=== PATIENT | male | born 1945 | race Caucasian/White ===

== ENCOUNTER 2018-01-02 05:18 | Inpatient (IN) | payer MEDICARE ==
[2017-12-27 15:42] LABS: BASOPHILS # (AUTO) 0.1 X10'3 (0-0.2); BASOPHILS % (AUTO) 0.8 % (0-1); EOSINOPHILS # (AUTO) 0.1 X10'3 (0-0.9); EOSINOPHILS % (AUTO) 1.6 % (0-6); LYMPHOCYTES # (AUTO) 2.2 X10'3 (1.1-4.8); LYMPHOCYTES % (AUTO) 30.3 % (21-51); MEAN CORPUSCULAR HEMOGLOBIN 30.6 PG (27.0-31.0); MEAN CORPUSCULAR HGB CONC 34.2 % (33.0-36.5); MEAN CORPUSCULAR VOLUME 89.7 FL (78-98); MONOCYTES # (AUTO) 0.6 X10'3 (0-0.9); MONOCYTES % (AUTO) 7.9 % (2-12); NEUTROPHILS # (AUTO) 4.3 X10'3 (1.8-7.7); NEUTROPHILS % (AUTO) 59.4 % (42-75); PRE OP HEMATOCRIT 42.9 % (42.0-52.0); PRE OP HEMOGLOBIN 14.6 g/dL (14.0-17.9); PRE OP PLATELET COUNT 216 X10'3 (140-440); RED BLOOD COUNT 4.78 X10'6 (4.70-6.10); RED CELL DISTRIBUTION WIDTH 14.7 % (11.5-14.5)
[2017-12-27 15:53] LABS: PRE OP PROTIME 10.7 SECONDS (9.0-12.0)
[2017-12-27 15:57] LABS: ALBUMIN 3.5 G/DL (3.4-5.0); ALKALINE PHOSPHATASE 91 IU/L (46-116); BLOOD UREA NITROGEN 18 MG/DL (7-18); BUN/CREATININE RATIO 20.9 (5.4-32.0); CALCIUM 8.9 MG/DL (8.5-10.1); CHLORIDE 108 MMOL/L (99-107); CREATININE 0.86 MG/DL (0.60-1.10); PRE OP ALT 24 U/L (30-65); PRE OP ANION GAP 10 (8-16); PRE OP AST 16 U/L (10-37); PRE OP BILIRUB, TOTAL 0.2 MG/DL (0.0-1.0); PRE OP GLUCOSE 100 MG/DL (70-104); PRE OP POTASSIUM 3.8 MMOL/L (3.4-5.1); PRE OP SODIUM 143 MMOL/L (135-145); TOTAL CARBON DIOXIDE 25.3 MMOL/L (24-32); TOTAL PROTEIN 6.9 G/DL (6.4-8.2); eGFR 87 ML/MIN
[2018-01-02] VITALS (28 sets, daily range): BP systolic 89–160; BP diastolic 54–90
[~2018-01-02] VITALS: Ht 175.3 cm; Wt 106.9 kg
[~2018-01-02 05:18] MED LIST: CELE-193 PO; METO-539 PO; OMEP20CA10 PO; PRAV80TA3 PO; VALS1TAB77 PO; ringers solution, lacted 1,000 ML IV SCH
[2018-01-02] MEDS ORDERED: tranexamic acid inj. 1,000 MG in normal saline 100ml IV soln 90 ML IV ONE (05:30)
[2018-01-02] MEDS ORDERED: acetaminophen 325mg tablet PO ONE (05:30)
[2018-01-02] MEDS ORDERED: oxyCODONE SR 10mg (sust. release) tab PO ONE (05:30)
[2018-01-02] MEDS ORDERED: vancomycin inj 1,500 MG in normal saline 300ml IV soln IV ONE (05:30)
[2018-01-02] MEDS ORDERED: DOCUMENT DATE & TIME OF BETA-BLOCKER PO ONE (05:30)
[2018-01-02] MEDS ORDERED: famotidine 20mg tablet PO ONE (05:30)
[2018-01-02] MEDS ORDERED: gabapentin 300mg capsule PO ONE (05:30)
[2018-01-02] MEDS ORDERED: metoclopramide 5 mg/ml inj IV ONE (05:30)
[2018-01-02] MEDS ORDERED: ceFAZolin inj. 2,000 MG in dextrose 5%-water 100 ML IV ONE (05:30)
[2018-01-02] MEDS ORDERED: LIDOcaine 1% (10mg/ml) 2ml vial ONE (06:10)
[2018-01-02] MEDS ORDERED: ketorolac trometh. 30mg/ml inj. ONE (06:43)
[2018-01-02] MEDS ORDERED: cloNIDine hcl/PF 100mcg/ml inj ONE ×2 (06:43→07:10)
[2018-01-02] MEDS ORDERED: ROPIVAcaine 0.5% (5mg/ml) 30ml vial ONE (06:44)
[2018-01-02] MEDS ORDERED: ceFAZolin 1000mg inj ONE (06:44)
[2018-01-02] MEDS ORDERED: vancomycin 1,000mg inj ONE ×2 (06:44→06:45)
[2018-01-02] MEDS ORDERED: BUPIVAcaine/PF 7.5mg/ml (0.75%) 10ml vial ONE (07:10)
[2018-01-02] MEDS ORDERED: desflurane 240ml liquid inh. IH ONE (07:17)
[2018-01-02] MEDS ORDERED: morphine sulfate /PF 0.5 MG/ML 10mL ampul ONE (07:25)
[2018-01-02] MEDS ORDERED: MIDAZolam 5mg/5ml vial ONE (07:25)
[2018-01-02] MEDS ORDERED: Thrombin (Bovine) 5,000 unit vial TP ONE (07:57)
[2018-01-02] MEDS ORDERED: morphine 10mg/ml inj. ONE (08:10)
[2018-01-02] MEDS ORDERED: ringers solution, lacted 1,000 ML IV SCH (08:13)
[2018-01-02] MEDS ORDERED: naloxone 2mg/2ml inj 2 MG in normal saline 500ml IV soln 500 ML IV PRN (08:13)
[2018-01-02] MEDS ORDERED: ondansetron/PF 4mg/2ml inj IV PRN ×3 (08:15→10:40)
[2018-01-02] MEDS ORDERED: meperidine/PF 25mg/ml syringe IV PRN ×3 (08:15)
[2018-01-02] MEDS ORDERED: diphenhydrAMINE 50 mg/ml inj IV PRN (08:15)
[2018-01-02] MEDS ORDERED: acetaminophen 1,000mg/100ml IV 100 ML IV PRN (08:15)
[2018-01-02] MEDS ORDERED: proCHLORperazine 10 MG/2 ml inj IV PRN (08:15)
[2018-01-02] MEDS ORDERED: morphine 4 MG/ML inj SYRINge IV PRN ×2 (08:15)
[2018-01-02] MEDS ORDERED: propofol inj 20 ML IV ONE (10:08)
[2018-01-02] MEDS ORDERED: 0.9 % SODIUM CHLORIDE 10 ML VIAL ONE ×2 (10:08)
[2018-01-02] MEDS ORDERED: dexamethasone sod phosphate 4mg/ml inj. ONE (10:08)
[2018-01-02] MEDS ORDERED: LIDOcaine 2% (20mg/ml) 5ml vial ONE (10:09)
[2018-01-02] MEDS ORDERED: ePHEDrine 50MG/ML INJ. ONE (10:09)
[2018-01-02] MEDS ORDERED: oxyCODONE IR 5mg (immed. release) tablet PO PRN ×2 (10:40)
[2018-01-02] MEDS ORDERED: HYDROmorphone inj. 0.5 MG/0.5 ML DISP.SYRIN IV PRN ×2 (10:40)
[2018-01-02] MEDS ORDERED: magnesium hydroxide 30ml (MOM) UD suspension PO PRN (10:40)
[2018-01-02] MEDS ORDERED: bisacodyl 10mg suppository rectal RC PRN (10:40)
[2018-01-02] MEDS ORDERED: acetaminophen 325mg tablet PO PRN (10:40)
[2018-01-02] MEDS ORDERED: diphenhydrAMINE 25mg capsule PO PRN ×2 (10:40)
[2018-01-02] MEDS: gabapentin 300mg capsule PO SCH ×2 (13:00→20:55)
[2018-01-02] MEDS ORDERED: tranexamic acid inj. 1,000 MG in normal saline 100ml IV soln 100 ML IV ONE ×2 (13:30→14:30)
[2018-01-02] MEDS: acetaminophen 325mg tablet PO SCH ×2 (14:00→20:55)
[2018-01-02] MEDS: potassium cl 20mEq in 1/2 NS 1,000 ML IV SCH ×2 (14:23→18:34)
[2018-01-02] MEDS ORDERED: HYDROmorphone 1 mg/ml syringe IV PRN ×2 (15:39→15:40)
[2018-01-02] MEDS: ceFAZolin 1GM/D5W- ADD-VANTAGE 50 ML IV SCH ×2 (16:57→23:49)
[2018-01-02] MEDS ORDERED: vancomycin/NS 1 GM ADD-VANTAGE 250 ML IV SCH (20:00)
[2018-01-02] MEDS ORDERED: sennosides 8.6mg tablet PO SCH (21:00)
[2018-01-02] MEDS ORDERED: pravastatin 40mg tablet PO SCH (21:00)
[2018-01-03 02:00] VITALS: BP 129/70
[2018-01-03] MEDS: acetaminophen 325mg tablet PO SCH ×3 (02:00→07:05)
[2018-01-03] MEDS: potassium cl 20mEq in 1/2 NS 1,000 ML IV SCH (02:40)
[2018-01-03 05:00] VITALS: BP 128/69
[2018-01-03 06:36] LABS: BASOPHILS % (AUTO) 0.3 % (0-1); EOSINOPHILS % (AUTO) 0.1 % (0-6); HEMATOCRIT 37.3 % (42.0-52.0); HEMOGLOBIN 12.9 g/dl (14.0-17.9); LYMPHOCYTES % (AUTO) 7.5 % (21-51); MEAN CORPUSCULAR HEMOGLOBIN 30.8 PG (27.0-31.0); MEAN CORPUSCULAR HGB CONC 34.5 % (33.0-36.5); MEAN CORPUSCULAR VOLUME 89.5 FL (78-98); MEAN PLATELET VOLUME 7.9 FL (7.4-10.4); MONOCYTES # (AUTO) 0.9 X10'3 (0-0.9); MONOCYTES % (AUTO) 7.2 % (2-12); NEUTROPHILS % (AUTO) 84.9 % (42-75); PLATELET COUNT 212 X10'3 (140-440); RED BLOOD COUNT 4.17 X10'6 (4.70-6.10); RED CELL DISTRIBUTION WIDTH 15.3 % (11.5-14.5); WHITE BLOOD COUNT 12.9 X10'3 (4.5-11.0)
[2018-01-03 06:47] LABS: ANION GAP 9 (8-16); CHLORIDE 105 MMOL/L (99-107); POTASSIUM 4.8 MMOL/L (3.5-5.1); SODIUM 140 MMOL/L (135-145); TOTAL CARBON DIOXIDE 26.2 MMOL/L (24-32)
[2018-01-03 06:56] VITALS: BP 125/65
[2018-01-03] MEDS: gabapentin 300mg capsule PO SCH (07:05)
[2018-01-03] MEDS ORDERED: pantoprazole 40mg Tablet.DR PO SCH (07:30)
[2018-01-03] MEDS ORDERED: HYDROchlorothiazide 25mg tablet PO SCH (08:00)
[2018-01-03] MEDS ORDERED: celeCOXIB 100mg capsule PO SCH ×2 (08:00→20:00)
[2018-01-03] MEDS ORDERED: enoxaparin 40mg/0.4ml syringe SQ SCH (08:00)
[2018-01-03] MEDS ORDERED: metoprolol succinate 25mg (24-HOUR) SR. Tablet PO SCH (08:00)
[2018-01-04] MEDS ORDERED: acetaminophen 325mg tablet PO PRN (10:40)
== END 2018-01-03 09:48 | disposition home or self-care (01) | DRG 470 ==
LOC: PAS IN 05:18 → EDSTATUS 07:30 → ORTHO 4S 13:30
PROVIDERS: ADMIT Orthopaedic Surgery; ATTEND Orthopaedic Surgery
PROC: 8E0YXCZ Robotic Assisted Procedure of Lower Extremity (ICD-10-PCS; 2018-01-02)
PROC: 3E0T3BZ Introduction of Anesthetic Agent into Peripheral Nerves and Plexi, Percutaneous Approach (ICD-10-PCS; 2018-01-02)
PROC: 0SRD069 Replacement of Left Knee Joint with Oxidized Zirconium on Polyethylene Synthetic Substitute, Cemented, Open Approach (ICD-10-PCS; principal; 2018-01-02 07:17)
DX: M17.12 Unilateral primary osteoarthritis, left knee (principal); I10 Essential (primary) hypertension; K21.9 Gastro-esophageal reflux disease without esophagitis; I25.10 Atherosclerotic heart disease of native coronary artery without angina pectoris; E11.9 Type 2 diabetes mellitus without complications; E66.9 Obesity, unspecified; I25.2 Old myocardial infarction; Z95.5 Presence of coronary angioplasty implant and graft; Z79.899 Other long term (current) drug therapy; Z68.34 Body mass index [BMI] 34.0-34.9, adult
CPT/HCPCS: 0232T; 36415; 71046; 80051; 80053; 82948; 85025; 85610; 85730; 87070; 93005; 97110; 97116; 97161; A6455; A7000; C1713; C1758; C1776; J0690; J0735; J1100; J1650; J1885; J2001; J2250; J2270; J2274; J2704; J2765; J2795; J3370; J3490; J7030; J7060; J7120

== ENCOUNTER 2025-07-13 13:50 | Emergency (ER) | payer MEDICARE ==
[~2025-07-13] VITALS: Ht 175.3 cm; Wt 103.1 kg
[~2025-07-13 13:50] MED LIST changes: -OMEP20CA10 PO; +OMEP20CA15 PO; -PRAV80TA3 PO; +PRAV80TA75 PO; -ringers solution, lacted 1,000 ML IV SCH
--- NOTE | 2025-07-13 14:13 | Physician Documentation ---
History of Present Illness ~ Chief Complaint: Diarrhea Stated Complaint: POST COLONOSCOPY COMP Time Seen by MD: 16:07 OK to notify your PCP?: Yes Source: patient Mode of Arrival: POV Exam Limitations: no limitations HPI This is a 80-year-old male who presents with diarrhea and abdominal cramping onset July 03 after a colonoscopy, patient reports no blood in stools, no dark stools, no fever, and no vomiting. Medication Reconciliation Allergies: Coded Allergies: No Known Allergies (Unverified , 07/13/25) Scheduled Celecoxib* (Celebrex*), 200 MG PO DAILY, (Reported) Metoprolol Succinate* (Toprol Xl*), 2 TAB PO DAILY, (Reported) Omeprazole (Omeprazole), 1 CAP PO DAILY, (Reported) Pravastatin Sodium (Pravastatin Sodium), 1 TAB PO DAILY, (Reported) Valsartan/Hydrochlorothiazide (Valsartan-Hctz 160-25 Mg Tab), 1 TAB PO DAILY, (Reported) Review of Systems ROS As stated above in the HPI, otherwise all systems are reviewed and negative. Physical Exam Vital Signs: Temperature: 96.3, Source: Temporal, Heart Rate: 96, Respiratory Rate: 18, BP: 146/83, Pulse Oximetry: 94, Weight: 103.100 Oxygen Flow Rate: 0 Physical Exam VITALS: Reviewed and as above. GENERAL: Alert, nontoxic appearing, no apparent distress. HEENT: RESPIRATORY: No increased work of breathing, no respiratory distress, speaking in full clear sentences CHEST: CV: BACK: GI: MUSCULOSKELETAL: SKIN: NEURO: PSYCH: General Appearance: alert, WD/WN, no apparent distress Respiratory: no respiratory distress Chest: no accessory muscle use Progress Results/Orders Results/Orders Orders - ROSITA MCMAHON Ct Abdomen Pelvis (07/13/25 18:25) * Iv Access / Saline Lock * (07/13/25 16:55) Levofloxacin-Levaquin 750mg/D5 (Levaquin (07/13/25 19:04) Metronidazole-Flagyl 500mg/Ns (Flagyl 50 (07/13/25 19:04) Completed Orders - ROSITA MCMAHON Ct Abdomen Pelvis (07/13/25 18:25) Iohexol 300mg/Ml 100ml Inj. (Omnipaque-3 (07/13/25 17:02) Vital Signs 07/13/25 07/13/25 07/13/25 13:51 17:45 18:04 Temp 96.3 Pulse 96 80 Resp 18 18 B/P (MAP) 146/83 117/65 (82) Pulse Ox 94 93 O2 Flow Rate 0 0 Laboratory Tests Test 07/13/25 14:15 07/13/25 17:39 White Blood Count 7.2 Red Blood Count 4.81 Hemoglobin 14.5 Hematocrit 42.3 Mean Corpuscular Volume 87.9 Mean Corpuscular Hemoglobin 30.1 Mean Corpuscular Hemoglobin Concent 34.2 Red Cell Distribution Width 14.2 Platelet Count 258 Mean Platelet Volume 7.4 Neutrophils (%) (Auto) 58.5 Lymphocytes (%) (Auto) 27.1 Monocytes (%) (Auto) 12.0 Eosinophils (%) (Auto) 1.9 Basophils (%) (Auto) 0.5 Neutrophils # (Auto) 4.2 Lymphocytes # (Auto) 1.9 Monocytes # (Auto) 0.9 Eosinophils # (Auto) 0.1 Basophils # (Auto) 0.0 CBC Comment Sodium Level 142 Potassium Level 3.5 Chloride Level 104 Carbon Dioxide Level 28.9 Anion Gap 9 Blood Urea Nitrogen 11 Creatinine 0.95 Estimated GFR/1.73 m2 76 BUN/Creatinine Ratio 11.6 Glucose Level 110 H Calcium Level 8.7 Total Bilirubin 0.4 Aspartate Amino Transf (AST/SGOT) 11 Alanine Aminotransferase (ALT/SGPT) 13 Alkaline Phosphatase 73 Total Protein 7.1 Albumin 3.1 L Globulin 4.0 Albumin/Globulin Ratio 0.8 L Lipase 53 Chemistry Comments Urine Specimen Description Urinal Urine Color Yellow Urine Clarity Clear Urine pH 6.0 Urine Specific [place] 1.025 Urine Protein Trace Urine Glucose (UA) Negative Urine Ketones Negative Urine Occult Blood Small Urine Nitrite Negative Urine Bilirubin Negative Urine Urobilinogen 0.2 Urine Leukocyte Esterase Negative Urine RBC 3-10 Urine WBC 0-4 Urine Squamous Epithelial Cells Few Urine Transitional Epithelial Cells Few Urine Bacteria 1+ Urine Mucus Moderate Urine Culture Indicated Not ind Volume Urine Centrifuged 10 ml Urine Comment Medical Decision Making Findings The patient is blood work and urine were unremarkable. CT scan abdomen and pelvis with IV contrast showed diffuse colonic wall thickening in his edema with the mucosal hyperemia. Differential considerations include colitis, inflammatory bowel disease. There were notes of some renal lesions when suspicious for with the medial cell carcinoma however the patient is well aware this and states it is a [facility] is already monitoring these lesions. I gave the patient a dose of Levaquin 750 mg IV as well as Flagyl 500 mg IV. I will discharge the patient home with Cipro 250 mg p.o. b.i.d. and clot Flagyl 500 mg b.i.d. for 10 days. He will start a clear liquid supplement diet. Follow up with the primary care physician for recheck in the next one or two days and return to the ER for any worsening or concerning symptoms. Diff Dx GI Bleed:Consideration: Include: AE fistula, Angiodysplasia, Bleeding diathesis, Blood loss anemia, Carcinoma, Diverticulosis, Diverticulitis, Esophageal varicies, Esophagitis, Gastritis, Gastroenteritis, Inflammatory BD, Soledad-Rivera syndrome, Meckel's diverticulum, PUD, Other Diff Dx Pain:Considerations: Include: AAA, Angina/KS, Aortic dissection, Appendicitis, Bowel obstruction, Cholangitis, Cholecystitis, Cholelithasis, Constipation, Diverticular disease, Esophageal rupture, Esophagitis, Gastritis, Gastroenteritis, GI hemorrhage, Hepatitis, Hernia, Inflammatory BD, Ischemic bowel, Mass, Pancreatitis, Porphyria, PUD, Testicular torsion, Trauma, intraabdominal, Urinary obstruction, Urinary tract infection, Urolithiasis, Other Diff Dx N/V/D:Considerations: Include: Appendicitis, Bowel obstruction, Dehydration, DKA, Diarrhea - bacterial, Diarrhea - parasitic, Diarrhea - viral, Diverticulitis, Diverticulosis, Drug toxicity, Electrolyte imbalance, Food poisoning, Gastroenteritis, GE reflux, GI bleed, Hepatitis, Hernia, Hypovolemia, Hypotension, Inflammatory BD, Impaction, Malnutrition, Pancreatitis, PUD, Renal failure, Urinary obstruction, UTI, Urolithiasis, Other Diff Dx Rectal:Considerations: Include: Fissure, Fistula, Foreign body, Impaction, Perirectal abscess, Prostatitis, Rectal prolapse, Subcutaneous abscess, Thrombosed hemorrhoid, Ulcer, UTI, Other Additional Comments Postprocedure discomfort. Colitis. Diverticulitis. Perforated viscus. Small- bowel obstruction. Departure Disposition: 01 HOME / SELF CARE / HOMELESS Impression: Primary Impression: Colitis Condition: Stable Discharge Instructions: Colitis Additional Instructions: Take the antibiotics as prescribed. Start a clear liquid soft bland diet. Follow up with the primary care physician for recheck in the next one or two days and return to the ER for any worsening or concerning symptoms. Referrals: NO PRIMARY CARE PROVIDER (PCP) Prescriptions Metronidazole* (Flagyl*) 500 Mg Tablet 1 TAB PO BID for 10 Days, #20 TAB Prov: ROSITA MCMAHON 07/13/25 Ciprofloxacin HCl (Ciprofloxacin HCl) 500 Mg Tab 1 TAB PO Q12H for 10 Days, #20 TAB Prov: ROSITA MCMAHON 07/13/25 Signature Scribe Signature: No Scribe Attestation: The note accurately reflects work and decisions made by me.Rosita KENYON 07/13/25 19:17 PETEY COLON Jul 13, 2025 14:13 ROSITA MCMAHON Jul 13, 2025 17:12
[2025-07-13 14:25] LABS: MEAN PLATELET VOLUME 7.4 FL (7.4-10.4); RED CELL DISTRIBUTION WIDTH 14.2 % (11.5-14.5)
[2025-07-13 14:39] LABS: CREATININE 0.95 MG/DL (0.60-1.10); TOTAL CARBON DIOXIDE 28.9 MMOL/L (24-32); eCRCL 61 ML/MIN; eGFR 76 ML/MIN
[2025-07-13] MEDS ORDERED: iohexol 300mg/ml 100ml inj. ONE (17:02)
[2025-07-13 17:46] LABS: LEUKOCYTE ESTERASE ,URINE NEGATIVE (Neg); NITRITES, URINE NEGATIVE (Neg); OCCULT BLOOD,URINE SMALL (Neg)
[2025-07-13 17:49] LABS: UA COLLECTION TYPE URINAL
[2025-07-13 17:53] LABS: MUCUS STRANDS MODERATE /LPF (Neg); SQUAMOUS EPITHELIAL CELL,UR FEW /LPF (FEW)
--- NOTE | 2025-07-13 18:59 | RADIOLOGY REPORT ---
INDICATION: Diffuse abdominal pain status post colonoscopy TECHNIQUE: CT axial images of the abdomen and pelvis are obtained with intravenous contrast. Coronal and sagittal reformats were obtained. COMPARISON: None FINDINGS: 3 mm right middle lobe calcified nodule. 4 mm left lower lobe calcified nodule. Bilateral atelectasis. Coronary artery calcification disease. Left adrenal nodule measuring 2.1 cm. Spleen unremarkable. Pancreas unremarkable. No enhancing hepatic lesion. No CT evidence for cholelithiasis. Right kidney demonstrates no hydronephrosis/nephrolithiasis. Left renal upper pole lesion with eccentric calcifications measuring 2.1 cm. Left renal mid to lower pole heterogeneously enhancing lesion measuring 2.2 cm. Left renal lower pole exophytic hyperdense lesion measuring 1.3 cm. The stomach is partially distended. The small bowel loops are normal in caliber. Colonic diverticular disease. Diffuse Colonic wall thickening with surrounding stranding. There is associated mucosal hyperemia. Numerous perirectal lymph nodes up to 9 mm. Abdominal aortic atherosclerotic disease. Bladder contracted. Prostate brachytherapy seeds. No inguinal lymphadenopathy. [id number] bilateral sacroiliac degenerative joint disease. There is moderate thoracolumbar degenerative disc disease. IMPRESSION: Diffuse colonic wall thickening and edema with mucosal hyperemia. Differential considerations include colitis, inflammatory bowel disease. There are 3 renal lesions. This includes a left renal midpole to lower pole enhancing lesion measuring 2.2 cm, highly suspicious for renal cell carcinoma. Left renal lower hyperdense lesion measuring 13 mm. Left renal upper pole lesion with eccentric calcification measuring 2.1 cm. Recommend MRI abdomen with and without contrast and urology consultation for further evaluation / management Left adrenal indeterminate nodule measuring 2.1 cm which can be further characterized with MRI abdomen, adrenal mass protocol. Atherosclerotic, coronary artery calcification disease. Prostate brachytherapy seeds. Other findings as described.
[2025-07-13] MEDS ORDERED: CIPR-458 PO (19:16)
[2025-07-13] MEDS ORDERED: METR-159 PO (19:16)
[2025-07-13] MEDS: levoFLOXACIN-Levaquin 750MG/D5 150 ML IV STA (19:39)
[2025-07-13] MEDS: metroNIDAZOLE-Flagyl 500mg/NS 100 ML IV STA (20:50)
[2025-07-13 21:26] VITALS: BP 108/51; PULSE 79; RESP 15; O2SAT 96
[2025-07-13 22:03] VITALS: TEMP 96.3
== END 2025-07-13 22:04 | disposition home or self-care (01) ==
LOC: ER 13:51
DX: K52.9 Noninfective gastroenteritis and colitis, unspecified (principal); Z79.899 Other long term (current) drug therapy
CPT/HCPCS: 36415; 74177; 80053; 81001; 83690; 85025; 96365; 96368; 99285; J1956; J3490; Q9967; 96367